=== PATIENT | female | born 2000 | race Caucasian/White ===

== ENCOUNTER 2021-01-10 07:49 | Emergency (ER) | payer BC ==
--- NOTE | 2021-01-10 08:17 | PCM.EKG ---
#1 Interpretation EKG Date: 01/10/21 Time: 08:08 Rhythm: NSR Rate (Beats/Min): 83 [place]: Normal P-Wave: Present QRS: Normal ST-T: Normal QT: Normal Comparison: NA - No Prior EKG EKG Interpretation Comments: sinus rhythm
[2021-01-10] MEDS ORDERED: Lactated Ringers 1,000 ML IV SCH (08:30)
--- NOTE | 2021-01-10 08:45 | EDM.PDOC ---
ED HPI GENERAL MEDICAL PROBLEM - General Chief Complaint: General Stated Complaint: PASSED OUT Time Seen by Provider: 01/10/21 07:51 - History of Present Illness INITIAL COMMENTS - FREE TEXT/NARRATIVE: CHIEF COMPLAINT(S): "I passed out at work." HISTORY OF PRESENT ILLNESS: This is a 20-year-old woman with a past medical history of recurrent syncope for years and recent medically induced approximately 2 weeks ago who comes to the emergency department with a chief complaint of "I passed out at work. The patient states that she was walking down the hallway with a resident when she and another nurse were talking about how warm it was. She states that she started to feel like she was going to pass out like every other time she has had before so she passed the resident to another nurse and ran to a different room and sat down and passed out and woke up a little confused. She states that she does not have any history of seizure disorder. She denies any urinary incontinence, tongue biting. She states that this passing out episode feels similar to every other time she has had a syncopal episode. She has never had this worked up. She states that her last syncopal episode was 1 year ago. She states that she is currently feeling asymptomatic. She states that she has had greater than 10 episodes similar to this in the past. She states that she did have a bilateral mild frontal headache which she rated as 2 out of 10 without any radiation. There is no numbness, tingling, weakness, trouble walking, speaking or swallowing. She states that she did have half a bottle of wine last night and it may be because of this. She denies any family history of early onset CAD, personal history of CAD, family history of sudden onset at young age. She denied any preceding chest pain or shortness of breath. She states that she does not have any swelling in her legs. She states that she has not had a clot in her lung or her legs but did drive to [place] the other day. In addition she states that she had a medically induced approximately 2 weeks ago and was told that her labs were decreasing normally as she has had labs drawn here. She denies any vaginal bleeding, vaginal discharge, pelvic pain. She denies any back pain. She denies any dysuria or hematuria. REVIEW OF SYSTEMS: Constitutional: Denies fever, chills. Eyes: Denies eye pain Ears, Nose, Mouth, & Throat: Denies earache Cardiovascular: Positive for syncope. Denies chest pain Respiratory: Denies shortness of breath Gastrointestinal: Denies Nausea, vomiting, diarrhea, hematochezia. Genitourinary: Denies hematuria, vaginal bleeding, vaginal discharge Skin:Denies a rash MSK: Denies joint pain Neurological: Denies blurred vision Psychiatric: Denies depression PAST MEDICAL HISTORY: As per history of present illness and as reviewed below otherwise noncontributory. SURGICAL HISTORY: As per history of present illness and as reviewed below otherwise noncontributory. LMP: 1 month SOCIAL HISTORY: As per history of present illness and as reviewed below otherwise noncontributory. FAMILY HISTORY: As per history of present illness and as reviewed below otherwise noncontributory. EXAMINATION OF ORGAN SYSTEMS/BODY AREAS: Constitutional: Blood pressure was 104/70, heart rate 80, respiratory rate 16 with an oxygen saturation of 100% on room air. Temperature 36.1 General: Overall well-appearing woman who is in no acute distress Psychiatric: Appropriate mood and affect. Eyes: No scleral icterus or conjunctival erythema ENMT: Moist mucous membranes. No pharyngeal erythema Cardiovascular: Regular, rate, and rhythm. No gallops, murmurs, or rubs. Bilateral upper extremity pulses symmetric and intact. No peripheral edema. No JVD. Respiratory: Lungs clear to auscultation bilaterally. No wheezes, rales, or rhonchi. Gastrointestinal: Soft, non-tender, non-distended. Normoactive bowel sounds Genitourinary: No suprapubic tenderness Musculoskeletal: Normal range of motion. Skin: No lesions or abrasions. Neurological: Alert, GCS 15 MEDICAL DECISION MAKING AND COURSE IN THE ED WITH INTERPRETATION/REVIEW OF DIAGNOSTIC STUDIES: This is a 20-year-old and with a past medical history of recurrent syncope for years and recent medically induced approximately 2 weeks ago who comes to the emergency department with acute syncopal episode which was unwitnessed. At this time the patient's vital signs are normal. Given the recent long travel to [place]. We will obtain a D-dimer to evaluate for pulmonary embolism. The patient is still low risk for pulmonary embolism. We did obtain an EKG which was unremarkable. Will obtain a chest x-ray to evaluate for other causes such as pneumothorax or other abnormality. We will obtain basic labs including CBC, BMP and we will obtain a quantitative hCG as the patient did recently have a quantitative hCG drawn which was at 5864 on December 29, 2020. We will provide the patient with 1 L of lactated Ringer's and obtain orthostatic vital signs. Laboratory: CBC reveals a mild leukocytosis of 11.12 with neutrophilic predominance without any left shift. Otherwise normal. D-dimer is negative and BMP is normal except for mild hyperglycemia at 72. Quantitative hCG was elevated at 1659 which is decreased from prior. hCG was positive. The radiological images were viewed by myself along with reading the report from the radiologist. Chest x-ray does not reveal any acute cardiopulmonary process. After imaging and labs I did perform a bedside transabdominal OB ultrasound to evaluate for possible ruptured ectopic given that the patient had not had any prior ultrasounds. The patient's quantitative hCG is decreasing therefore I do believe this is less likely however given the syncope we will will evaluate for free fluid in the pelvis. Bedside transabdominal OB ultrasound There does not appear to be any free fluid in the pelvis or in the right upper quadrant. There did not appear to be any gestational sac or yolk sac. At this time I did discuss with the patient that at this time given that she has normal orthostatics, normal vital signs appears overall well has a normal rhythm strip of her heart and labs that I recommend she follows up with her primary care physician given that this has been going on for quite some time. I recommend that she return for any new or worsening symptoms. She was amenable discharge at this time and had no further questions DISPOSITION: The patient was discharged home in stable condition. The patient will follow up with primary care physician in 1 to 3 days CONDITION: Fair PROCEDURES: Bedside transabdominal OB ultrasound FINAL IMPRESSION(S)/DIAGNOSES: 1. Acute syncopal episode Temo Byrne M.D. - Related Data Allergies Allergy/AdvReac Type Severity Reaction Status Date / Time No Known Allergies Allergy Verified 01/10/21 08:01 Home Meds: Home Meds . [No Known Home Meds] 01/10/21 [History] Past Medical History - Past Health History Medical/Surgical History: Denies Medical/Surgical History - Infectious Disease History Infectious Disease History: Reports: None Social & Family History - Caffeine Use Caffeine Use: Reports: None - Recreational Drug Use Recreational Drug Use: No ED ROS GENERAL - Review of Systems Review Of Systems: See Below ED EXAM, GENERAL - Physical Exam Exam: See Below Course - Vital Signs Last Recorded V/S: Last Vital Signs Temp 36.1 C 01/10/21 08:01 Pulse 68 01/10/21 11:37 Resp 16 01/10/21 11:37 BP 92/53 L 01/10/21 11:37 Pulse Ox 99 01/10/21 11:37 Orthostatic Blood Pressure [ 97/61 Standing] Orthostatic Blood Pressure [ 95/54 Sitting] Orthostatic Blood Pressure [ 104/60 Supine] - Orders/Labs/Meds Labs: Laboratory Tests 01/10/21 01/10/21 01/10/21 Range/Units 08:15 08:35 08:35 WBC 11.12 H (4.0-11.0) K/uL RBC 4.01 L (4.30-5.90) M/uL Hgb 12.8 (12.0-16.0) g/dL Hct 37.1 (36.0-46.0) % MCV 92.5 (80.0-98.0) fL MCH 31.9 (27.0-32.0) pg MCHC 34.5 (31.0-37.0) g/dL RDW Std Deviation 42.3 (28.0-62.0) fl RDW Coeff of Zhanna 13 (11.0-15.0) % Plt Count 269 (150-400) K/uL MPV 9.80 (7.40-12.00) fL Neut % (Auto) 87.0 H (48.0-80.0) % Lymph % (Auto) 9.4 L (16.0-40.0) % Coleman % (Auto) 3.3 (0.0-15.0) % Eos % (Auto) 0.1 (0.0-7.0) % Baso % (Auto) 0.2 (0.0-1.5) % Neut # (Auto) 9.7 H (1.4-5.7) K/uL Lymph # (Auto) 1.0 (0.6-2.4) K/uL Coleman # (Auto) 0.4 (0.0-0.8) K/uL Eos # (Auto) 0.0 (0.0-0.7) K/uL Baso # (Auto) 0.0 (0.0-0.1) K/uL Nucleated RBC % 0.0 /100WBC Nucleated RBCs # 0 K/uL D-Dimer, Quantitative 0.41 (0.0-0.50) mg/L FEU Sodium (136-145) mmol/L Potassium (3.5-5.1) mmol/L Chloride (98-107) mmol/L Carbon Dioxide (21.0-32.0) mmol/L BUN (7.0-18.0) mg/dL Creatinine (0.6-1.0) mg/dL Est Cr Clr Drug Dosing mL/min Estimated GFR (MDRD) ml/min Glucose (74-106) mg/dL Calcium (8.5-10.1) mg/dL HCG, Quant mIU/mL Urine HCG, Qual POSITIVE (NEGATIVE) 01/10/21 Range/Units 08:35 WBC (4.0-11.0) K/uL RBC (4.30-5.90) M/uL Hgb (12.0-16.0) g/dL Hct (36.0-46.0) % MCV (80.0-98.0) fL MCH (27.0-32.0) pg MCHC (31.0-37.0) g/dL RDW Std Deviation (28.0-62.0) fl RDW Coeff of Zhanna (11.0-15.0) % Plt Count (150-400) K/uL MPV (7.40-12.00) fL Neut % (Auto) (48.0-80.0) % Lymph % (Auto) (16.0-40.0) % Coleman % (Auto) (0.0-15.0) % Eos % (Auto) (0.0-7.0) % Baso % (Auto) (0.0-1.5) % Neut # (Auto) (1.4-5.7) K/uL Lymph # (Auto) (0.6-2.4) K/uL Coleman # (Auto) (0.0-0.8) K/uL Eos # (Auto) (0.0-0.7) K/uL Baso # (Auto) (0.0-0.1) K/uL Nucleated RBC % /100WBC Nucleated RBCs # K/uL D-Dimer, Quantitative (0.0-0.50) mg/L FEU Sodium 141 (136-145) mmol/L Potassium 3.6 (3.5-5.1) mmol/L Chloride 102 (98-107) mmol/L Carbon Dioxide 29.5 (21.0-32.0) mmol/L BUN 11 (7.0-18.0) mg/dL Creatinine 0.7 (0.6-1.0) mg/dL Est Cr Clr Drug Dosing 99.30 mL/min Estimated GFR (MDRD) > 60.0 ml/min Glucose 72 L (74-106) mg/dL Calcium 8.7 (8.5-10.1) mg/dL HCG, Quant 1659.0 mIU/mL Urine HCG, Qual (NEGATIVE) Meds: Medications Discontinued Medications Generic Name Dose Route Start Last Admin Trade Name Freq PRN Reason Stop Dose Admin Lactated Ringer's 1,000 mls @ 999 mls/hr 01/10/21 08:30 01/10/21 09:02 Ringers, Lactated IV 999 mls/hr ASDIRECTED STEFAN Administration Departure - Departure Time of Disposition: 11:26 Disposition: Home, Self-Care 01 Condition: Fair Clinical Impression: Syncope - Discharge Information *PRESCRIPTION DRUG MONITORING PROGRAM REVIEWED*: No *COPY OF PRESCRIPTION DRUG MONITORING REPORT IN PATIENT AUGIE: No Instructions: Syncope, Sytz-to-Nyum Referrals: Lavern Martinez MD [Primary Care Provider] - Forms: ED Department Discharge Additional Instructions: You were evaluated today on an emergent basis. At this time given that this has been going on for years and your work-up was negative today I do recommend that you follow-up with your primary care physician for referral given the recurrent syncope. If you have any worsening symptoms such as passing out again, chest pain, shortness of breath I want you to return to the emergency department. [facility] [address] [place] [id number] [facility] [address] [place] [address] The patient is informed of any results of their evaluation and diagnostic workup and all questions are answered. They are given discharge instructions and return precautions. The patient is stable for discharge. The patient states they understand and agree with the plan and that they will return if their symptoms get worse or if they have any new concerns. The following information is given to patients seen in the emergency department who are being discharged to home. This information is to outline your options for follow-up care. We provide all patients seen in our emergency department with a follow-up referral. The need for follow-up, as well as the timing and circumstances, are variable depending upon the specifics of your emergency department visit. If you don't have a primary care physician on staff, we will provide you with a referral. We always advise you to contact your personal physician following an emergency department visit to inform them of the circumstance of the visit and for follow-up with them and/or the need for any referrals to a consulting specialist. The emergency department will also refer you to a specialist when appropriate. This referral assures that you have the opportunity for follow-up care with a specialist. All of these measure are taken in an effort to provide you with optimal care, which includes your follow-up. Under all circumstances we always encourage you to contact your private physician who remains a resource for coordinating your care. When calling for follow-up care, please make the office aware that this follow-up is from your recent emergency room visit. If for any reason you are refused follow-up, please contact the [facility] Emergency Department at and asked to speak to the emergency department charge nurse. Sepsis Event Note (ED) - Evaluation Sepsis Screening Result: No Definite Risk - Focused Exam Vital Signs: Vital Signs Temp Pulse Resp BP Pulse Ox 01/10/21 11:37 68 16 92/53 L 99 01/10/21 09:11 69 16 95/54 L 100 01/10/21 08:01 36.1 C 80 16 104/70 100
[2021-01-10 09:24] LABS: BLOOD UREA NITROGEN,BUN 11 mg/dL (7.0-18.0); CARBON DIOXIDE,CO2 29.5 mmol/L (21.0-32.0); CHLORIDE,CL 102 mmol/L (98-107); GLUCOSE RANDOM 72 mg/dL (74-106); POTASSIUM,K 3.6 mmol/L (3.5-5.1); SODIUM,NA 141 mmol/L (136-145)
--- NOTE | 2021-01-10 10:16 | CR ---
INDICATION: Syncope. FINDINGS: A single portable chest x-ray shows a normal cardiac silhouette. The lungs show no focal pulmonary opacities. Sharp pleural margins. No pneumothorax. IMPRESSION: No evidence of acute pulmonary abnormalities. Dictated by Rishabh Gaxiola MD @ 01/10/2021 10:13:[address] Rishabh Gaxiola @ Jan 10 2021 10:13AM
== END 2021-01-10 11:37 | disposition home or self-care (01) ==
LOC: MW.ED 07:49
DX: R55 Syncope and collapse (principal)
CPT/HCPCS: 36415; 71045; 80048; 81025; 84702; 85025; 85379; 93005; 99284; J7120; 99283

== ENCOUNTER 2021-02-03 05:47 | Emergency (ER) | payer BC ==
--- NOTE | 2021-02-03 06:16 | EDM.PDOC ---
<Marko Fragoso - Last Filed: 02/03/21 07:02> ED HPI GENERAL MEDICAL PROBLEM - General Chief Complaint: SIGNAL MAINTAINER Problem Stated Complaint: POSSIBLE MISCARRIAGE Time Seen by Provider: 02/03/21 06:07 Source of Information: Reports: Patient History Limitations: Reports: No Limitations - History of Present Illness INITIAL COMMENTS - FREE TEXT/NARRATIVE: Patient is a 20-year-old female who presents today for possible spontaneous . Patient states that she woke up this morning has some vaginal bleeding with clots present. Says she is wearing a pad now does not need to change it. Patient states that she had an elective in November. She did not have a menstrual cycle in December and is not sure how far along she is. She reports some abdominal cramping denies any fatigue. She did mention some nausea as well. Lower abdomen Pain Score (Numeric/FACES): 10 - Related Data Allergies Allergy/AdvReac Type Severity Reaction Status Date / Time No Known Allergies Allergy Verified 02/03/21 05:56 Home Meds: Home Meds miSOPROStoL [Cytotec] 200 mcg PO ASDIRECTED #3 tablet 02/03/21 [Rx] Past Medical History - Past Health History Medical/Surgical History: Denies Medical/Surgical History HEENT History: Reports: None Cardiovascular History: Reports: None Respiratory History: Reports: None Gastrointestinal History: Reports: None Genitourinary History: Reports: None SIGNAL MAINTAINER History: Reports: None Musculoskeletal History: Reports: None Neurological History: Reports: None Psychiatric History: Reports: None Endocrine/Metabolic History: Reports: None Hematologic History: Reports: None Oncologic (Cancer) History: Reports: None Dermatologic History: Reports: None - Infectious Disease History Infectious Disease History: Reports: None - Past Surgical History Head Surgeries/Procedures: Reports: None HEENT Surgical History: Reports: Oral Surgery Social & Family History - Family History Family Medical History: No Pertinent Family History - Tobacco Use Tobacco Use Status *Q: Never Tobacco User - Caffeine Use Caffeine Use: Reports: Energy Drinks - Recreational Drug Use Recreational Drug Use: No ED ROS GENERAL - Review of Systems Review Of Systems: See Below Constitutional: Reports: No Symptoms HEENT: Reports: No Symptoms Respiratory: Reports: No Symptoms Cardiovascular: Reports: No Symptoms Endocrine: Reports: No Symptoms GI/Abdominal: Reports: Abdominal Pain : Reports: Irregular Menses Musculoskeletal: Reports: No Symptoms Skin: Reports: No Symptoms Neurological: Reports: No Symptoms Psychiatric: Reports: No Symptoms Hematologic/Lymphatic: Reports: No Symptoms Immunologic: Reports: No Symptoms ED EXAM, GI/ABD - Physical Exam Exam: See Below Exam Limited By: No Limitations Eyes: Bilateral: EOMI Respiratory/Chest: No Respiratory Distress, Lungs Clear, Normal Breath Sounds Cardiovascular: Normal Peripheral Pulses, Regular Rate, Rhythm GI/Abdominal Exam: Normal Bowel Sounds, Soft, Non-Tender (Female) Exam: Normal External Exam, Vaginal Bleeding, Other (Os is close). No: Adnexal Mass, Adnexal Tenderness Extremities: Normal Inspection Neurological: Alert, Oriented Course - Re-Assessments/Exams Free Text/Narrative Re-Assessment/Exam: 02/03/21 07:03 Patient to be signed out to oncoming attending. Patient is pending urine if positive will have ultrasound. Departure - Departure Disposition: Home, Self-Care 01 Clinical Impression: Retained products of conception - Discharge Information Prescriptions: miSOPROStoL [Cytotec] 200 mcg PO ASDIRECTED #3 tablet Instructions: Incomplete Miscarriage Referrals: Lavern Martinez MD [Primary Care Provider] - Forms: ED Department Discharge Additional Instructions: I sent medication to your pharmacy which should help with your symptoms. I did speak with the SIGNAL MAINTAINER on-call Dr. aNva who would like to see you in his office early next week for lab redraw and consideration for D&C procedure depending on your symptoms. If you have profuse bleeding, feel like you are about to pass out, chest pain, difficulty breathing then you should come back to the emergency department. The medication that I am prescribing can cause some lower abdominal cramping pain. You can take Motrin and Tylenol for these pains. [facility] [address] [place] [id number] The following information is given to patients seen in the emergency department who are being discharged to home. This information is to outline your options for follow-up care. We provide all patients seen in our emergency department with a follow-up referral. The need for follow-up, as well as the timing and circumstances, are variable depending upon the specifics of your emergency department visit. If you don't have a primary care physician on staff, we will provide you with a referral. We always advise you to contact your personal physician following an emergency department visit to inform them of the circumstance of the visit and for follow-up with them and/or the need for any referrals to a consulting specialist. The emergency department will also refer you to a specialist when appropriate. This referral assures that you have the opportunity for follow-up care with a specialist. All of these measure are taken in an effort to provide you with optimal care, which includes your follow-up. Under all circumstances we always encourage you to contact your private physician who remains a resource for coordinating your care. When calling for follow-up care, please make the office aware that this follow-up is from your recent emergency room visit. If for any reason you are refused follow-up, please contact the [facility] Emergency Department at and asked to speak to the emergency department charge nurse. Please follow up with your primary care physician. If you do not have a primary care physician, see below: [facility] [address] [place] [place] [address] [id number] [facility] [address] [place] [id number] [facility] [address] [place] [place] [id number] Sepsis Event Note (ED) - Evaluation Sepsis Screening Result: No Definite Risk - Assessment/Plan Plan: Patient is a 20-year-old female who presents today for possible spontaneous . She says she had a elective in November and denied a menstrual cycle and we will obtain labs to confirm status and then reassess patient then. If patient is positive will perform pelvic exam and possible ultrasound. <Christian Bryan - Last Filed: 02/03/21 08:42> Course - Vital Signs Last Recorded V/S: Last Vital Signs Temp 97.3 F 02/03/21 05:56 Pulse 77 02/03/21 05:56 Resp 16 02/03/21 05:56 BP 105/69 02/03/21 05:56 Pulse Ox 100 02/03/21 05:56 - Orders/Labs/Meds Orders: Active Orders 24 hr Category Date Time Status CHLAMYDIA AND GONORRHEA BY TMA Stat Lab 02/03/21 06:50 Received Labs: Laboratory Tests 02/03/21 02/03/21 02/03/21 Range/Units 06:15 06:15 06:24 WBC 9.91 (4.0-11.0) K/uL RBC 4.11 L (4.30-5.90) M/uL Hgb 13.0 (12.0-16.0) g/dL Hct 38.8 (36.0-46.0) % MCV 94.4 (80.0-98.0) fL MCH 31.6 (27.0-32.0) pg MCHC 33.5 (31.0-37.0) g/dL RDW Std Deviation 45.8 (28.0-62.0) fl RDW Coeff of Zhanna 13 (11.0-15.0) % Plt Count 250 (150-400) K/uL MPV 9.90 (7.40-12.00) fL Neut % (Auto) 81.9 H (48.0-80.0) % Lymph % (Auto) 12.9 L (16.0-40.0) % Harney % (Auto) 4.6 (0.0-15.0) % Eos % (Auto) 0.4 (0.0-7.0) % Baso % (Auto) 0.2 (0.0-1.5) % Neut # (Auto) 8.1 H (1.4-5.7) K/uL Lymph # (Auto) 1.3 (0.6-2.4) K/uL Harney # (Auto) 0.5 (0.0-0.8) K/uL Eos # (Auto) 0.0 (0.0-0.7) K/uL Baso # (Auto) 0.0 (0.0-0.1) K/uL Nucleated RBC % 0.0 /100WBC Nucleated RBCs # 0 K/uL Sodium (136-145) mmol/L Potassium (3.5-5.1) mmol/L Chloride (98-107) mmol/L Carbon Dioxide (21.0-32.0) mmol/L BUN (7.0-18.0) mg/dL Creatinine (0.6-1.0) mg/dL Est Cr Clr Drug Dosing mL/min Estimated GFR (MDRD) ml/min Glucose (74-106) mg/dL Calcium (8.5-10.1) mg/dL HCG, Quant mIU/mL Urine Color YELLOW Urine Appearance SLT CLOUDY Urine pH 6.0 (5.0-8.0) Ur Specific [place] 1.020 (1.001-1.035) Urine Protein NEGATIVE (NEGATIVE) mg/dL Urine Glucose (UA) NEGATIVE (NEGATIVE) mg/dL Urine Ketones NEGATIVE (NEGATIVE) mg/dL Urine Occult Blood LARGE H (NEGATIVE) Urine Nitrite NEGATIVE (NEGATIVE) Urine Bilirubin NEGATIVE (NEGATIVE) Urine Urobilinogen 0.2 (<2.0) EU/dL Ur Leukocyte Esterase NEGATIVE (NEGATIVE) Urine RBC 90-100 (0-2/HPF) Urine WBC 0-2 (0-5/HPF) Ur Epithelial Cells RARE (NONE-FEW) Urine Bacteria RARE (NEGATIVE) Urine HCG, Qual POSITIVE (NEGATIVE) Lisa species DNA (NEGATIVE) Gardnerella DNA Probe (NEGATIVE) Trichomonas DNA Probe (NEGATIVE) 02/03/21 02/03/21 Range/Units 06:24 06:50 WBC (4.0-11.0) K/uL RBC (4.30-5.90) M/uL Hgb (12.0-16.0) g/dL Hct (36.0-46.0) % MCV (80.0-98.0) fL MCH (27.0-32.0) pg MCHC (31.0-37.0) g/dL RDW Std Deviation (28.0-62.0) fl RDW Coeff of Zhanna (11.0-15.0) % Plt Count (150-400) K/uL MPV (7.40-12.00) fL Neut % (Auto) (48.0-80.0) % Lymph % (Auto) (16.0-40.0) % Harney % (Auto) (0.0-15.0) % Eos % (Auto) (0.0-7.0) % Baso % (Auto) (0.0-1.5) % Neut # (Auto) (1.4-5.7) K/uL Lymph # (Auto) (0.6-2.4) K/uL Harney # (Auto) (0.0-0.8) K/uL Eos # (Auto) (0.0-0.7) K/uL Baso # (Auto) (0.0-0.1) K/uL Nucleated RBC % /100WBC Nucleated RBCs # K/uL Sodium 137 (136-145) mmol/L Potassium 4.3 (3.5-5.1) mmol/L Chloride 104 (98-107) mmol/L Carbon Dioxide 27.0 (21.0-32.0) mmol/L BUN 14 (7.0-18.0) mg/dL Creatinine 0.7 (0.6-1.0) mg/dL Est Cr Clr Drug Dosing 94.78 mL/min Estimated GFR (MDRD) > 60.0 ml/min Glucose 96 (74-106) mg/dL Calcium 8.6 (8.5-10.1) mg/dL HCG, Quant 161.0 mIU/mL Urine Color Urine Appearance Urine pH (5.0-8.0) Ur Specific [place] (1.001-1.035) Urine Protein (NEGATIVE) mg/dL Urine Glucose (UA) (NEGATIVE) mg/dL Urine Ketones (NEGATIVE) mg/dL Urine Occult Blood (NEGATIVE) Urine Nitrite (NEGATIVE) Urine Bilirubin (NEGATIVE) Urine Urobilinogen (<2.0) EU/dL Ur Leukocyte Esterase (NEGATIVE) Urine RBC (0-2/HPF) Urine WBC (0-5/HPF) Ur Epithelial Cells (NONE-FEW) Urine Bacteria (NEGATIVE) Urine HCG, Qual (NEGATIVE) Lisa species DNA NEGATIVE (NEGATIVE) Gardnerella DNA Probe NEGATIVE (NEGATIVE) Trichomonas DNA Probe NEGATIVE (NEGATIVE) Meds: Medications Discontinued Medications Generic Name Dose Route Start Last Admin Trade Name Freq PRN Reason Stop Dose Admin Misoprostol 200 mcg 02/03/21 08:38 Misoprostol 100 Mcg Tab PO 02/03/21 08:39 ONETIME ONE - Re-Assessments/Exams Free Text/Narrative Re-Assessment/Exam: 02/03/21 08:39 Ultrasonography shows evidence of retained products. I did communicate this with SIGNAL MAINTAINER on-call Dr. Saenz who recommends 200 mg Cytotec twice daily x48 hours. He would like to see the patient in his office early next week for reassessment and lab redraw Departure - Departure Time of Disposition: 08:40 Condition: Good Sepsis Event Note (ED) - Focused Exam Vital Signs: Vital Signs Temp Pulse Resp BP Pulse Ox 02/03/21 05:56 97.3 F 77 16 105/69 100 - My Orders Last 24 Hours: My Active Orders 02/03/21 06:50 CHLAMYDIA AND GONORRHEA BY TMA Stat - Assessment/Plan Last 24 Hours: My Active Orders 02/03/21 06:50 CHLAMYDIA AND GONORRHEA BY TMA Stat
[2021-02-03 07:19] LABS: BLOOD UREA NITROGEN,BUN 14 mg/dL (7.0-18.0); CHLORIDE,CL 104 mmol/L (98-107); GLUCOSE RANDOM 96 mg/dL (74-106); POTASSIUM,K 4.3 mmol/L (3.5-5.1); SODIUM,NA 137 mmol/L (136-145)
--- NOTE | 2021-02-03 08:25 | US ---
INDICATION: Vaginal bleeding, quantitative HCG one hundred sixty bone, history of dilatation and extraction December 23, 2020 TECHNIQUE: Ultrasound pelvis transabdominal and transvaginal for better assessment or to better visualize the endometrium. Real-time sonographic images with spectral and color Doppler imaging of the ovaries were obtained. COMPARISON: None FINDINGS: Uterus: The uterus demonstrates normal myometrial echogenicity. Endometrium: Transvaginal imaging was performed to better evaluate the endometrium. Endometrial thickness measures 14 mm. There is demonstration of vascular heterogeneous material filling the endometrial canal and endocervical canal. Right ovary measures 1.5 x 1.9 x 2.6 cm and left ovary measures 2.8 x 2.3 x 2.4 cm. No ovarian or adnexal masses. Normal arterial and venous blood flow is demonstrated in both ovaries. Cul-de-sac: No significant free fluid. IMPRESSION: Demonstration of extensive heterogeneous vascular material within the endometrial canal commensurate with retained products of conception from prior dilatation and extraction procedure. No evidence of viable intrauterine gestation. Dictated by Gelacio Field MD @ 02/03/2021 8:23:36 AM (Electronically Signed)
[2021-02-03] MEDS ORDERED: Misoprostol 100 MCG Tab PO ONE (08:38)
[2021-02-04 15:03] LABS: C.TRACHOMATIS BY TMA Negative (Negative); N.GONORRHOEAE BY TMA Negative (Negative)
== END 2021-02-03 09:03 | disposition home or self-care (01) ==
LOC: MW.ED 05:47
DX: O07.4 Failed attempted termination of pregnancy without complication (principal)
CPT/HCPCS: 36415; 76801; 80048; 81001; 81025; 84702; 85025; 87480; 87491; 87510; 87591; 87660; 99284; A9270